=== PATIENT | male | born 1975 | race Caucasian/White ===

== ENCOUNTER 2017-05-05 18:54 | Emergency (ER) | payer SELFPAY ==
[~2017-05-05] VITALS: Ht 177.8 cm; Wt 95.2 kg
[2017-05-05] MEDS ORDERED: LASIX40 MG PO (19:31)
[2017-05-05] MEDS ORDERED: KLOR-CON M2020 MEQ PO (19:31)
[2017-05-05] MEDS ORDERED: FENTANYL1 EAC2 TD (19:32)
[2017-05-05] MEDS ORDERED: MORPHINE S100 MG/5 M PO (19:34)
[2017-05-05] MEDS ORDERED: LACTULOSE20 GM/30 M PO (19:35)
== END 2017-05-05 21:07 | disposition left against medical advice (07) ==
LOC: ED 18:54
DX: Z53.21 Procedure and treatment not carried out due to patient leaving prior to being seen by health care provider (principal)
CPT/HCPCS: 80053; 81001; 82140; 83690; 85610; 85730; J2405